=== PATIENT | female | born 1950 | race Caucasian/White ===

== ENCOUNTER 2024-08-29 09:13 | Outpatient (CLI) | payer MEDICARE, OTHER ==
[2024-08-29] MEDS ORDERED: Iopamidol 370 76% 100 ML VIAL ONE (09:58)
== END 2024-08-29 09:14 | disposition home or self-care (01) ==
LOC: CSHCT 09:13
PROVIDERS: ATTEND Family Medicine
DX: Z12.31 Encounter for screening mammogram for malignant neoplasm of breast (principal); R14.0 Abdominal distension (gaseous); D73.89 Other diseases of spleen; Z80.3 Family history of malignant neoplasm of breast
CPT/HCPCS: 36415; 74177; 77063; 77067; 82565

== ENCOUNTER 2024-09-13 15:05 | Outpatient (CLI) | payer MEDICARE, OTHER | END 2024-09-13 15:06 | disposition home or self-care (01) | LOC: CSHMAMMO 15:05 | PROVIDERS: ATTEND Family Medicine | DX: M81.0 Age-related osteoporosis without current pathological fracture (principal) | CPT/HCPCS: 77080 ==